=== PATIENT | female | born 1980 | race Caucasian/White ===

== ENCOUNTER 2017-12-16 18:57 | Emergency (ER) | payer OTHER ==
--- NOTE | 2017-12-16 19:12 | ED Physician Documentation ---
General Adult - HISTORIAN Historian: patient - HPI Stated Complaint: laceration of thumb left hand Chief Complaint: Laceration/Recheck/Suture Onset: minutes (35) Timing: still present Severity: mild Further Comments: yes (She was using an automatic roseanna and cut her thumb. She has no pain or sensation loss. She can move her finger) Last known Well Code/Unknown Code: Unknown - ROS CONST: no problems - PAST HX Past History: none Other History: none Surgeries/Procedures: none Immunizations: UTD Allergies/Adverse Reactions: Allergies Allergy/AdvReac Type Severity Reaction Status Date / Time latex Allergy Mild Verified 12/16/17 19:08 morphine Allergy Mild Verified 12/16/17 19:08 Penicillins Allergy Mild Verified 12/16/17 19:07 tramadol Allergy Mild Verified 12/16/17 19:08 - SOCIAL HX Smoking History: non-smoker Alcohol Use: none Drug Use: none - FAMILY HX Family History: No - VITAL SIGNS Vital Signs: Vital Signs Temp Pulse Resp BP Pulse Ox 109/41 09/03/13 09:06 - REVIEWED ASSESSMENTS Nursing Assessment Reviewed: Yes Vitals Reviewed: Yes General Adult Physical Exam - PHYSICAL EXAM GENERAL APPEARANCE: no distress EENT: eye inspection normal NECK: normal inspection RESPIRATORY: no resp distress, chest non-tender, breath sounds normal CVS: reg rate & rhythm, heart sounds normal, equal pulses, no murmur ABDOMEN: soft, normal bowel sounds BACK: normal inspection SKIN: warm/dry, other (left thumb three small puntcutre wounds. FROM. Pulses + and sensation + ) EXTREMITIES: non-tender NEURO: oriented X3, CN's nml as tested, motor nml Discharge Clincal Impression: Laceration of left hand Qualifiers: Encounter type: initial encounter Foreign body presence: without foreign body Qualified Code(s): S61.412A - Laceration without foreign body of left hand, initial encounter Referrals: Primary Doctor,No [Primary Care Provider] - 2 Days Comments: 1. Keep area clean and dry 2. Monitor for s/sx of infection 3. See PCP for any concerns 4. Return to ER for any concerns Condition: Stable Disposition: 01 HOME, SELF-CARE Decision to Admit: NO Date of Decison to Admit: 12/16/17 Decision Time: 19:26
[2017-12-16] MEDS ORDERED: NEOMYCIN/BACITRACIN/POLYMYXINB 1 EACH OINT.PACK TP ONE (19:29)
[2017-12-16 19:33] VITALS: BP 121/62
== END 2017-12-16 19:30 | disposition home or self-care (01) ==
LOC: ED 18:57
DX: S61.412A Laceration without foreign body of left hand, initial encounter (principal); W26.8XXA Contact with other sharp object(s), not elsewhere classified, initial encounter; Y92.9 Unspecified place or not applicable; Y93.9 Activity, unspecified; Y99.9 Unspecified external cause status
CPT/HCPCS: 99282